=== PATIENT | female | born 2000 | race Caucasian/White ===

== ENCOUNTER 2024-08-08 10:49 | Outpatient (AMB) | payer BC, SELFPAY ==
--- NOTE | 2024-08-08 10:56 | A.OFFVIS_ITS ---
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 Allergies amitriptyline Adverse Reaction (Severe, Verified 08/08/24 11:08) psychosis lorazepam Adverse Reaction (Severe, Verified 08/08/24 11:08) psychosis montelukast Adverse Reaction (Severe, Verified 08/08/24 11:08) psychosis gabapentin Adverse Reaction (Severe, Uncoded 08/08/24 11:08) psychosis naltrexone Adverse Reaction (Severe, Uncoded 08/08/24 11:08) psychosis Medication List - Last Reconciled 08/08/24 by Laura Howard LPN acetaminophen 650 mg PO Q6H PRN bupropion HCl XL 150 mg PO QAM cyclobenzaprine 5 mg PO BEDTIME fluoxetine 20 mg PO DAILY galcanezumab-gnlm (Emgality Pen) 120 mg subcut .Monthly magnesium carb,citrate,oxide (Magnesium Complex) mg PO methylphenidate HCl 40 mg PO QAM ondansetron 4 mg PO Q8H PRN prazosin 1 mg PO QPM pregabalin 150 mg PO BID topiramate 75 mg PO BID trazodone 50 mg PO BEDTIME ubrogepant 100 mg PO BID PRN HPI HPI Complex regional pain syndrome: Details: History of Present Illness The patient is a 24-year-old female presenting with exacerbation of chronic pain and management of migraine and neuralgic pain. Her chronic pain has notably worsened over the past year, proving resistant to medications including low-dose naltrexone, gabapentin, and pregabalin, among others, alongside alternative therapies such as acupuncture and massage therapy. She has a history of Complex Regional Pain Syndrome (CRPS) affecting her right leg since childhood, which had been partially managed with gabapentin initially but still encounters occasional flare-ups. Her primary concern is debilitating migraines, complex in nature with multiple types, and their management being ineffective thus far. Associated trigeminal and occipital neuralgia exacerbate the migraine burden. 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 She reports potential myasthenic symptoms impinging on daily functionality, alongside psychiatric concerns predominately revolving around anxiety, depression, PTSD, and ADHD, complicating treatment. Pain Description - Chronic pain onset many years ago, affecting multiple body regions. - Migraine onset at unknown age, includes unilateral headaches with aura, trigeminal and occipital neuralgia. - Chris-Danlos Syndrome: joint hypermobility pain. - CRPS onset at age 12-13, right leg, following soccer injury, episodic flare- ups. - Pain exacerbated by inadequate medication response, stress, and physical exertion. - Minimal relief from alternative therapies like acupuncture, massage. - Functionally interferes with work, childcare administrator, physical activity. Physical Exam - Appears afebrile. - Alert and oriented. - Mood and affect appropriate. - Follows and participates in conversation appropriately. - Respiratory effort is unlabored. - Able to transition from sit to stand unassisted. - Ambulates with bilaterally normal heel strike and toe off. - Able to stand and walk on toes and heels. Pain Management - Affect: Pain significantly impacting psychological well-being, causing work interruptions, anxiety, and depressive symptoms. - Analgesia: Using low-dose naltrexone, THC at night, OTC anti-inflammatories with minimal relief; pain management remains inadequate. - Adverse Effects: Not specified in the conversation. - Activities of Daily Living: Major limitation noted in work, caring for toddler, and mobility tasks (e.g., stairs). - Aberrant Drug Related Behaviors: Not discussed. [facility] Medical History (Updated 08/21/24 @ 10:20 by Александр Gordon MD) Chris-Danlos syndrome Physical Exam Vital Signs: Last Vital Signs Pulse 80 08/08/24 10:58 Resp 16 08/08/24 10:58 BP 98/68 08/08/24 10:58 Pulse Ox 98 08/08/24 10:58 Oxygen Delivery Method Room Air 08/08/24 10:58 BMI result Body Mass Index 15.9 Assessment & Plan Assessment & Plan (1) CRPS (complex regional pain syndrome type I): Code(s): G90.50 - Complex regional pain syndrome I, unspecified Category: Medical (2) Chronic pain syndrome: Code(s): G89.4 - Chronic pain syndrome Category: Medical (3) Migraine: Code(s): G43.909 - Migraine, unspecified, not intractable, without status migrainosus Category: Medical Plan Plan - Consider Botox for migraine management, understanding lower recommended dosage due to EDS. - Explore non-invasive management options through [employer] and [employer] platforms through [employer]. - Refer to pain psychologists for cognitive and behavioral therapies as adjunct measures. - Advise against chiropractic manipulation due to hypermobility and EDS. - Encourage swimming for long-term joint health and reduced joint stress. - Emphasize maintenance of conservative treatment strategies and collaborative inter-disciplinary coordination. - Continue transfer plans to [facility] for headache specialist intervention. Patient was informed and verbally consented to the use of an ambient scribe for clinic note documentation during this visit. Discussion Notes During our discussion, I emphasized the complexity of managing chronic and neuralgic pain, particularly given the patient's extensive diagnosis list including EDS, and the need for targeted pain management strategies like Botox under the guidance of a headache specialist. We explored non-invasive alternatives like [employer] and [employer] to manage hypermobility and supported mental health involvement through pain psychology referrals for CBT and biofeedback. I advised caution against certain physical treatments due to EDS- related hypermobility and underscored the potential benefits of regular swimmi ng. Patient's current regimen, including low-dose naltrexone and alternative therapies, was reviewed, and further assessment with headache specialists at [facility] was planned. There was a consensus about gradual collaboration and holistic approaches tailored to the patient's specific neurological and pain management needs. Patient Instructions - Consider exploring Botox treatment for migraines with specialist guidance. - Participate in [employer] and [employer] for remote support and hypermobility management. - Schedule follow-up for pain psychology consultation for CBT and biofeedback. - Avoid chiropractic manipulation for neck and back due to EDS. - Regular swimming to offload joints and improve circulation if possible. - Continue current therapies and stay informed and involved in coordinated care. - Transfer pain and headache management to [facility] as planned. Coding Level of Care Code New Pt Level 4 (56646) Diagnoses CRPS (complex regional pain syndrome type I) G90.50 Chronic pain syndrome G89.4 Migraine G43.909
[2024-08-08 10:58] VITALS: BP 98/68; PULSE 80; RESP 16; O2SAT 98; BMI 15.9
--- OUTSIDE RECORDS SUMMARY | 2024-08-08 11:55 | XMS_ITS | Data Portability ---
Author Organization [facility] Address [address] [place] [id number] Assessment No assessment recorded. Plan of Treatment Reminders Order Date Submit Date Provider Last Modified By Organization Details Last Modified Time Details Appointments None recorded. Lab urinalysi s, dipstick 2018 [id number] [facility], [address] [place] [address], [phone], 9 08:28:57 culture, urine 2018 [facility] Not available 9 10:32:55 Referral None recorded. Procedures None recorded. Surgeries None recorded. Imaging None recorded. Medication Orders Macrobid 100 mg capsule 2018 019 INTERFACE [id number], [address], [address], [place], [address], 9 09:38:31 Patient TargetsNo targets recorded. Patient InstructionsNo instructions recorded. Reason for Referral None Reported. Results Created Date Observation Date Name Description Value Unit Range Abnormal Flag Note LastModifiedBy Organization Detail LastModifiedTime Result Notes None recorded. Medical Equipment None Reported. Allergies No known drug allergies Medications Name Sig Start Date Stop Date Status Note LastModified by Organization Details LastModified Time Macrobid 100 mg capsule Take 1 capsule every 12 hours by oral route for 5 days. active Not Available Not Available Not Avai lable Vitals Date Recorded Body temperature Systolic blood pressure Diastolic blood pressure Provider Name and Address Organization Details Last Updated DateTime 11/07/2018 98.5 [degF] 112 mm[Hg] 70 mm[Hg] [facility] 11/07/2018 09:20:37 Social History None recorded. Functional Status None recorded. Mental Status None recorded. Family History Nothing Reported. Medical History No medical history recorded. Gynecological HistoryNo gynecological history recorded. Obstetrics History GPAL:G 0 P 0 0 0 0 Past Encounters Encounter ID Performer Location Encounter Start Date Encounter Closed Date Diagnosis/Indication Diagnosis SNOMED-CT Code Diagnosis ICD10 Code Diagnosis Note [id number] [facility] [address] [place] [address] [facility] [id number] 11/07/2018 09:11:45 11/07/2018 10:05:30 Acute urinary tract infection [id number] N39.0 Take your antibiotic s as directed. Do not stop taking them just because you feel better. You need to take the full course of antibiotic s. Drink extra water and other fluids for the next day or two. This may help wash out the bacteria that are causing the infection. (If you have kidney, heart, or liver disease and have to limit fluids, talk with your doctor before you increase your fluid intake.) Avoid drinks that are carbonated or have caffeine. They can irritate the bladder. Urinate often. Try to empty your bladder each time. To relieve pain, take a hot bath or lay a heating pad set on low over your lower belly or genital area. Never go to sleep with a heating pad in place. To prevent UTIs Drink plenty of water each day. This helps you urinate often, which clears bacteria from your system. (If you have kidney, heart, or liver disease and have to limit fluids, talk with your doctor before you increase your fluid intake.) Urinate when you need to. Urinate right after you have sex. Change sanitary pads often. Avoid douches, bubble baths, feminine hygiene sprays, and other feminine hygiene products that have deodorants . After going to the bathroom, wipe from front to back. When should you call for help?Call your doctor nowor seek immediate medical care if: Symptoms such as fever, chills, nausea, or vomiting get worse or appear for the first time. You have new pain in your back just below your rib cage. This is called flank pain. There is new blood or pus in your urine. You have any problems with your antibiotic medicine. Health Concerns Section Related Observation LastModified by Organization Detai ls LastModified Time None Recorded Concern Status LastModified by Organization Details LastModified Time None Recorded Advance Directives Directive None Recorded Payers Encounter Date Sequence Insurance Name Policy Number Policy Baeza Covered Member ID Baeza Member ID Guarantor Name 11/07/2018 1 [place]: LEO (PPO) [id number] Alma Brooks [id number] Alma Brooks OBG[facility] Episode No OBEpisode recorded.
== END 2024-08-08 11:30 | disposition home or self-care (01) ==
LOC: HO.PMC 10:49
PROVIDERS: PCP Physician Assistant Medical; Visit Provider Internal Medicine
DX: G90.50 Complex regional pain syndrome I, unspecified (principal); G89.4 Chronic pain syndrome; G43.909 Migraine, unspecified, not intractable, without status migrainosus
CPT/HCPCS: 99204

== ENCOUNTER → 2024-08-08 10:49 | Outpatient (BNVA) | payer BC, SELFPAY | PROVIDERS: PCP Physician Assistant Medical; Visit Provider Internal Medicine ==